=== PATIENT | female | born 1960 | race Caucasian/White ===

== ENCOUNTER → 2017-04-01 | Outpatient (CLI) | payer OTHER ==
--- NOTE | 2017-04-01 11:11 | RADIOLOGY REPORT (SQ) ---
EXAM DESCRIPTION: C SP 4 OR 5 VIEWS COMPLETED DATE/TIME: 04/01/2017 10:32 am REASON FOR STUDY: CERVICALGIA M54.2 CERVICALGIA COMPARISON: CT 2009 NUMBER OF VIEWS: Five views including obliques. TECHNIQUE: AP, lateral, obliques and odontoid radiographic images acquired of the cervical spine. LIMITATIONS: None. FINDINGS: MINERALIZATION: Normal. SEGMENTATION: Normal. ALIGNMENT: Normal. VERTEBRAE: Maintained height. No fracture or worrisome bone lesion. DISCS: Multilevel disc space narrowing with osteophytes. POSTERIOR ELEMENTS: Pedicles and facets are intact. No posterior arch defects. Facet arthropathy is present. FORAMINA: Narrowed at the levels of maximal disc and facet disease. HARDWARE: None in the spine. PARASPINAL SOFT TISSUES: Normal. OTHER: Ligamentous calcification noted posterior to the spinous processes. IMPRESSION: SPONDYLOSIS WITHOUT BONE LESION OR FRACTURE. TECHNICAL DOCUMENTATION: JOB ID: [id number] [employer]- All Rights Reserved
== END ==
LOC: OD 10:15
PROVIDERS: ATTEND Physician Assistant
DX: M54.2 Cervicalgia (principal); M47.892 Other spondylosis, cervical region
CPT/HCPCS: 72050

== ENCOUNTER 2017-07-08 11:15 | Emergency (ER) | payer OTHER ==
--- NOTE | 2017-07-08 11:58 | ER Document Report ---
HPI - HPI Patient complains to provider of: Abscess recheck Onset: Other - 7 Onset/Duration: Persistent Pain Level: 1 Context: 56-year-old type II diabetic here for her right mons pubis abscess recheck. It was opened on the eighth in the emergency department. She is taking antibiotics. No fever, chills, body aches. She thinks it is getting better. Associated Symptoms: None Exacerbated by: Movement Relieved by: Denies Similar symptoms previously: No Recently seen / treated by doctor: Yes - ROS ROS below otherwise negative: Yes Systems Reviewed and Negative: Yes All other systems reviewed and negative - CARDIOVASCULAR Cardiovascular: DENIES: Chest pain - DERM Skin Color: Normal Past Medical History - General Information source: Patient - Social History Smoking Status: Never Smoker Chew tobacco use (# tins/day): No Frequency of alcohol use: None Drug Abuse: None Family History: Reviewed & Not Pertinent Patient has suicidal ideation: No Patient has homicidal ideation: No - Past Medical History Cardiac Medical History: Reports: Hx Hypertension Endocrine Medical History: Reports: Hx Diabetes Mellitus Type 2 Renal/ Medical History: Denies: Hx Peritoneal Dialysis Musculoskeltal Medical History: Reports Hx Arthritis Psychiatric Medical History: Reports: Hx Depression - SINCE A CHILD Past Surgical History: Reports: Hx Hysterectomy - Immunizations Hx Diphtheria, Pertussis, Tetanus Vaccination: No Vertical Provider Document - CONSTITUTIONAL Agree With Documented VS: Yes Exam Limitations: No Limitations - INFECTION CONTROL TRAVEL OUTSIDE OF THE [place] IN LAST 30 DAYS: No - NECK Neck: Supple - RESPIRATORY O2 Sat by Pulse Oximetry: 97 - GI/ABDOMEN Gastrointestinal: Abdomen Soft, Abdomen Non-Tender - REPRODUCTIVE Notes: Right mons pubis with draining abscess, induration, erythema. She states the size of the induration is smaller than it was before. I did reopen the incision with 1 Q-tip and explained to her how she will need to continue to keep it open with cleaning twice a day. - MUSCULOSKELETAL/EXTREMETIES Musculoskeletal/Extremeties: MAEW, FROM, Tender - See above - NEURO Level of Consciousness: Awake, Alert, Appropriate - DERM Integumentary: Abscess - See above Course - Vital Signs Vital signs: Temp Pulse Resp BP Pulse Ox 97.7 F 76 20 131/79 H 97 07/08/17 11:23 07/08/17 11:23 07/08/17 11:23 07/08/17 11:23 07/08/17 11:23 Discharge - Discharge Clinical Impression: right mons pubis abscess recheck Condition: Good Disposition: HOME, SELF-CARE Instructions: Abscess ([facility]) Additional Instructions: warm compress all weekend return to er if any fever, bodyaches, feels sick, worsening swelling and pain Using antibacterial soap and sponge twice a day to the area to keep the wound open so will continue to heal from the inside out Finish the antibiotics Please complete the patient satisfaction survey if you get one, and return it.. If you do not receive a survey, then you can go to the [facility] website, [email or web address] and place your comments about your very good care. Thank you very much. It was a pleasure being your medical provider today. Forms: Return to Work Referrals: TRUMAN TAPIA PA-C [Primary Care Provider] - Follow up as needed
[2017-07-08 12:34] VITALS: BP 128/78
== END 2017-07-08 12:32 | disposition home or self-care (01) ==
LOC: ER 11:15
DX: L02.215 Cutaneous abscess of perineum (principal)
CPT/HCPCS: 99282